=== PATIENT | male | born 1965 | race African-American/Black ===

== ENCOUNTER 2018-03-30 09:09 | Emergency (ER) | payer OTHER ==
[~2018-03-30] VITALS: Ht 170.2 cm; Wt 85.0 kg
[2018-03-30 09:22] VITALS: BP 137/85; PULSE 81; RESP 16; TEMP 98.5; O2SAT 99
[2018-03-30] MEDS ORDERED: BLOOD PRESSURE MED (10:02)
--- NOTE | 2018-03-30 10:26 | PD ---
HPI Chief Complaint: Pain: Acute or Chronic Time Seen by Provider: 09:41 Travel History International Travel<30 days: No Contact w/Intl Traveler<30days: No Traveled to known affect area: No History of Present Illness HPI 53-year-old male that presents to the ED for evaluation of pain to his right chest and neck. Per patient he has had this for about 3 days now. Per patient started Friday. He was driving from [place] to here. 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 He states that he has some discoloration and swelling on the area and she is concerned that the aneurysm might be leaking. Per patient he follows with a surgeon in [place] but not here. He states that the pain is 7 out of 10. Gets worse with movement. Per patient he does have some numbness and tingling to his right arm which she attributes to the surgery he had when he had a year ago but has noted some substantial increase in the symptoms since the pain started on Friday. He denies any shortness of breath with it. He has not taken anything for this. Pain is worse with movement as well as with touch. Most of the pain appears to be right around the clavicle area. Denies any left-sided pain. Denies any discoloration of the skin on the arm but only on the chest. Denies take any blood thinners. Has not seen his surgeon for this. Has not seen anybody for this. PFSH Past Medical History Hypertension: Yes Medical other: Yes (VASCUALR NECROSIS) Past Surgical History Thoracic Surgery: Yes (RIB REMOVAL) Other Surgery: Yes (PTFE GRAFT AND CLIPS SUBCLAVIAN ) Social History Alcohol Use: Yes (occ) Tobacco Use: Yes Substance Use: No Allergies-Medications (Allergen,Severity, Reaction): Coded Allergies: tramadol (Verified Allergy, Unknown, Rash, 03/30/18) Reported Meds & Prescriptions Reported Meds & Active Scripts Active Reported [Blood Pressure Med] Review of Systems Except as stated in HPI: all other systems reviewed are Neg Physical Exam Narrative GENERAL: SKIN: Warm and dry. HEAD: Atraumatic. Normocephalic. EYES: Pupils equal and round. No scleral icterus. No injection or drainage. ENT: No nasal bleeding or discharge. Mucous membranes pink and moist. Tongue is midline. No uvula deviation. Dental: Patient does have bad dentition noted throughout the left lower mouth. NECK: Trachea midline. No JVD. CARDIOVASCULAR: Regular rate and rhythm. No murmurs, S3, S4. RESPIRATORY: No accessory muscle use. Clear to auscultation. Breath sounds equal bilaterally. GASTROINTESTINAL: Abdomen soft, non-tender, nondistended. Hepatic and splenic margins not palpable. MUSCULOSKELETAL: Extremities without clubbing, cyanosis, or edema. No obvious deformities. Full range of motion of the upper and lower extremities bilaterally. 2+ pulses bilaterally. Patient does have some reversible pain and swelling noted on the right clavicle area with some darkening of the skin compared to the rest of the skin. He does have a surgical scar in this area. No obvious bruit or deformity noted other than swelling. Full range of motion of the right extremity. 2+ pulses bilaterally. Sensation intact bilaterally. No cervical spine tenderness to palpation. NEUROLOGICAL: Awake and alert. No obvious cranial nerve deficits. Motor grossly within normal limits. Five out of 5 muscle strength in the arms and legs. Normal speech. PSYCHIATRIC: Appropriate mood and affect; insight and judgment normal. Data Data Last Documented VS Vital Signs Date Time Temp Pulse Resp B/P (MAP) Pulse Ox O2 Delivery O2 Flow Rate FiO2 03/30/18 09:22 98.5 81 16 137/85 (102) 99 Orders Orders Complete Blood Count With Diff (03/30/18 10:00) Basic Metabolic Panel (Bmp) (03/30/18 10:00) Prothrombin Time / Inr (Pt) (03/30/18 10:00) Act Partial Throm Time (Ptt) (03/30/18 10:00) Magnesium (Mg) (03/30/18 10:00) Cta Chest W Iv Contrast W 3d (03/30/18 ) Morphine Inj (Morphine Inj) (03/30/18 10:30) Metoclopramide Inj (Reglan Inj) (03/30/18 10:30) MDM Medical Decision Making Medical Screen Exam Complete: Yes Emergency Medical Condition: Yes Medical Record Reviewed: Yes Differential Diagnosis Aneurysm pain versus muscle strain versus muscle spasm versus swelling versus aneurysm leaking Narrative Course 54-year-old male the presents to the ED for evaluation of right neck pain. Patient was properly examined and was found to have signs and symptoms concerning with possible pain from aneurysm repair. Cannot completely rule out leakage of the aneurysm secondary to his history as I do recommend labs and imaging. Case was signed out to incoming provider pending disposition and plan. Zafar Mrach Mar 30, 2018 10:26
[2018-03-30] MEDS ORDERED: MORPHINE SULFATE 4 MG/ML INJ IV PUSH ONE (10:30)
[2018-03-30] MEDS ORDERED: METOCLOPRAMIDE HCL 10 MG/2 ML VIAL IV PUSH ONE (10:30)
[2018-03-30 10:33] LABS: AUTOMATED NEUTROPHIL # 6.9 TH/MM3 (1.8-7.7); BASOPHIL % 0.4 % (0.0-2.0); EOSINOPHIL # 0.3 TH/MM3 (0-0.4); EOSINOPHIL % 2.8 % (0.0-4.0); HEMOGLOBIN 15.2 GM/DL (13.0-17.0); LYMPH % 16.9 % (9.0-44.0); LYMPHOCYTE # 1.6 TH/MM3 (1.0-4.8); MEAN CELL VOLUME 90.3 FL (80.0-100.0); MEAN CORPUSCULAR HEMOGLOBIN 31.1 PG (27.0-34.0); MEAN CORPUSCULAR HGB CONC 34.5 % (32.0-36.0); MEAN PLATELET VOLUME 7.7 FL (7.0-11.0); MONO % 7.6 % (0.0-8.0); MONOCYTE # 0.7 TH/MM3 (0-0.9); NEUT % 72.3 % (16.0-70.0); PLATELET COUNT 245 TH/MM3 (150-450); RED BLOOD COUNT 4.88 MIL/MM3 (4.50-5.90); RED CELL DISTRIBUTION WIDTH 13.6 % (11.6-17.2); WHITE BLOOD COUNT 9.5 TH/MM3 (4.0-11.0)
[2018-03-30 10:43] LABS: INTERNATIONAL NORMALIZED RATIO 1.1 RATIO; PROTHROMBIN TIME - PATIENT 11.1 SEC (9.8-11.6)
[2018-03-30 10:57] LABS: BICARBONATE 26.2 MEQ/L (21.0-32.0); CALCIUM 8.6 MG/DL (8.5-10.1); CREATININE 1.07 MG/DL (0.60-1.30); MAGNESIUM 2.2 MG/DL (1.5-2.5)
--- NOTE | 2018-03-30 11:27 | PD ---
Physical Exam Narrative GENERAL: SKIN: Warm and dry. HEAD: Atraumatic. Normocephalic. EYES: Pupils equal and round. No scleral icterus. No injection or drainage. ENT: No nasal bleeding or discharge. Mucous membranes pink and moist. Tongue is midline. No uvula deviation. Dental: Patient does have bad dentition noted throughout the left lower mouth. NECK: Trachea midline. No JVD. CARDIOVASCULAR: Regular rate and rhythm. No murmurs, S3, S4. RESPIRATORY: No accessory muscle use. Clear to auscultation. Breath sounds equal bilaterally. GASTROINTESTINAL: Abdomen soft, non-tender, nondistended. Hepatic and splenic margins not palpable. MUSCULOSKELETAL: Extremities without clubbing, cyanosis, or edema. No obvious deformities. Full range of motion of the upper and lower extremities bilaterally. 2+ pulses bilaterally. Patient does have some reversible pain and swelling noted on the right clavicle area with some darkening of the skin compared to the rest of the skin. He does have a surgical scar in this area. No obvious bruit or deformity noted other than swelling. Full range of motion of the right extremity. 2+ pulses bilaterally. Sensation intact bilaterally. No cervical spine tenderness to palpation. NEUROLOGICAL: Awake and alert. No obvious cranial nerve deficits. Motor grossly within normal limits. Five out of 5 muscle strength in the arms and legs. Normal speech. PSYCHIATRIC: Appropriate mood and affect; insight and judgment normal. Data Data Last Documented VS Vital Signs Date Time Temp Pulse Resp B/P (MAP) Pulse Ox O2 Delivery O2 Flow Rate FiO2 03/30/18 09:22 98.5 81 16 137/85 (102) 99 Orders Orders Complete Blood Count With Diff (03/30/18 10:00) Basic Metabolic Panel (Bmp) (03/30/18 10:00) Prothrombin Time / Inr (Pt) (03/30/18 10:00) Act Partial Throm Time (Ptt) (03/30/18 10:00) Magnesium (Mg) (03/30/18 10:00) Cta Chest W Iv Contrast W 3d (03/30/18 ) Morphine Inj (Morphine Inj) (03/30/18 10:30) Metoclopramide Inj (Reglan Inj) (03/30/18 10:30) Iohexol 350 Inj (Omnipaque 350 Inj) (03/30/18 11:32) Labs Laboratory Tests Test 03/30/18 10:25 White Blood Count 9.5 TH/MM3 Red Blood Count 4.88 MIL/MM3 Hemoglobin 15.2 GM/DL Hematocrit 44.0 % Mean Corpuscular Volume 90.3 FL Mean Corpuscular Hemoglobin 31.1 PG Mean Corpuscular Hemoglobin Concent 34.5 % Red Cell Distribution Width 13.6 % Platelet Count 245 TH/MM3 Mean Platelet Volume 7.7 FL Neutrophils (%) (Auto) 72.3 % Lymphocytes (%) (Auto) 16.9 % Monocytes (%) (Auto) 7.6 % Eosinophils (%) (Auto) 2.8 % Basophils (%) (Auto) 0.4 % Neutrophils # (Auto) 6.9 TH/MM3 Lymphocytes # (Auto) 1.6 TH/MM3 Monocytes # (Auto) 0.7 TH/MM3 Eosinophils # (Auto) 0.3 TH/MM3 Basophils # (Auto) 0.0 TH/MM3 CBC Comment DIFF FINAL Differential Comment Prothrombin Time 11.1 SEC Prothromb Time International Ratio 1.1 RATIO Activated Partial Thromboplast Time 29.2 SEC Blood Urea Nitrogen 12 MG/DL Creatinine 1.07 MG/DL Random Glucose 92 MG/DL Calcium Level 8.6 MG/DL Magnesium Level 2.2 MG/DL Sodium Level 143 MEQ/L Potassium Level 3.8 MEQ/L Chloride Level 110 MEQ/L Carbon Dioxide Level 26.2 MEQ/L Anion Gap 7 MEQ/L Estimat Glomerular Filtration Rate 88 ML/MIN [facility] Medical Record Reviewed: Yes Supervised Visit with IVAN: Yes Narrative Course I, Dr. Reyes, have reviewed the advance practice practitioner's documentation and am in agreement, met with the patient face to face, made the diagnosis, and the medical decision making was done by me. The patient was initially evaluated by [MIROSLAVA March]. Please see their complete history and physical. *My assessment and Findings: The patient presents with right-sided neck and supra spinatus region pain worse with movement and palpation, most likely to be musculoskeletal in nature however because the patient has a past medical history of a right subclavian aneurysm with repair in [place], a CTA will be obtained to further evaluate patient's arterial anatomy. During the course of the patient's emergency department visit, the patient's history, examination, and differential diagnosis were reviewed with the patient. The patient was placed on a cardiac rehabilitation specialist with oximetry and frequent blood pressure monitoring. The patient had [-peripheral] IV access obtained and blood work sent for analysis. The patient was initially provided [pain medication and muscle relaxer-]. The patient's laboratory studies were reviewed and remarkable for [CBC with no leukocytosis, no anemia, normal platelet count, no left shift Coagulation profile is within normal limits Electrodes are all within normal limits, normal kidney functions]. Radiology studies were reviewed and remarkable for [CTA chest read by radiologist as evidence of previous repair of right subclavian aneurysm with surgical clips evident but do not see any residual aneurysm. The distal subclavian does appear to have contrast within it] Diagnosis Primary Impression: Musculoskeletal strain of neck Referrals: [facility] Patient Instructions: Cervical Strain (ED), General Instructions Scripts Penicillin V Potassium (Penicillin V Potassium) 500 Mg Tab 500 MG PO Q8H for Infection for 7 Days, #21 TAB 0 Refills Prov: Jose Reyes MD 03/30/18 Codeine-Acetaminophen (Codeine-Acetaminophen) 30-300 mg Tab 1 TAB PO Q4H Y for PAIN for 3 Days, #12 TAB 0 Refills Prov: Jose Reyes MD 03/30/18 Cyclobenzaprine (Flexeril) 10 Mg Tab 10 MG PO TID for Muscle Spasm, #15 TAB 0 Refills Prov: Jose Reyes MD 03/30/18 Disposition: 01 DISCHARGE HOME Condition: Stable Jose Reyes MD Mar 30, 2018 11:27
[2018-03-30] MEDS ORDERED: IOHEXOL 350 MG/ML 10 ML VIAL (for RAD DIAG) IVCONTRAST ONE (11:32)
--- NOTE | 2018-03-30 11:52 | RADRPT ---
EXAM DATE: 03/30/2018 11:44 AM EDT AGE/SEX: 53 years / Male INDICATIONS: Right subclavian aneurysm repair with pain in that region. CLINICAL DATA: This is the patient's initial encounter. Patient reports that signs and symptoms have been present for 1 week and indicates a pain score of 4/10. MEDICAL/SURGICAL HISTORY: Hypertension. . Multiple Graft and clips to subclavian RADIATION DOSE: 7.13 CTDI (mGy) COMPARISON: No prior exams available for comparison. TECHNIQUE: Volumetric scanning was performed using a multi-row detector CT scanner during bolus infu barbra of 75 ml Omnipaque 350 (iohexol) nonionic water-soluble contrast as a single exam dose. The dilma a was post processed with a variety of visualization algorithms including full volume maximum intensi ty projection and sliding thin slab reformation. Using automated exposure control and adjustment of the mA and/or kV according to patient size, radiation dose was kept as low as reasonably achievable t o obtain optimal diagnostic quality images. FINDINGS: I have no prior studies for comparison Patient has a history of a right subclavian artery aneurysm repair. Surgical clips are evident with w hat appears to be a bypass. The distal subclavian is patent. I don't see a residual aneurysm. The bra chial artery is obscured by vein. The ascending and descending aorta appear normal The innominate artery, left subclavian appear normal. There are no suspicious lung lesions identified. Mild compensated cardiomegaly Thyroid appears normal There is no adenopathy appreciated. CONCLUSION: 1. Evidence for previous repair of right subclavian aneurysm with surgical clips evident. I don't se e residual aneurysm. The distal subclavian does appear to have contrast within it. Correlation with d istal pulses is suggested. Electronically signed by: Shlomo Barrientos MD 03/30/2018 11:51 AM EDT
[2018-03-30] MEDS ORDERED: CYCL10TA PO (12:08)
[2018-03-30] MEDS ORDERED: CODE30TA2 PO (12:08)
[2018-03-30] MEDS ORDERED: PENI500T PO (12:24)
== END 2018-03-30 12:30 | disposition home or self-care (01) ==
LOC: NEPD 09:09
DX: S16.1XXA Strain of muscle, fascia and tendon at neck level, initial encounter (principal); I10 Essential (primary) hypertension; X58.XXXA Exposure to other specified factors, initial encounter; Z72.0 Tobacco use; Z79.899 Other long term (current) drug therapy
CPT/HCPCS: 71275; 80048; 83735; 85025; 85610; 85730; 96374; 96375; 99285; J2270; J2765; Q9967